=== PATIENT | female | born 1960 ===

== ENCOUNTER → 2016-10-21 | Outpatient (REF) | payer OTHER | LOC: M LAB REF 10:30 | PROVIDERS: ATTEND Registered Nurse | DX: L82.1 Other seborrheic keratosis (principal) ==

== ENCOUNTER → 2021-08-04 | Outpatient (REF) | payer OTHER | LOC: M LABCFH 14:50 | PROVIDERS: ATTEND Physician Assistant | DX: R87.610 Atypical squamous cells of undetermined significance on cytologic smear of cervix (ASC-US) (principal); Z12.4 Encounter for screening for malignant neoplasm of cervix; Z78.0 Asymptomatic menopausal state ==

== ENCOUNTER → 2022-03-16 | Outpatient (REF) | LOC: M PLALAB 12:39 | PROVIDERS: ATTEND Internal Medicine | DX: M54.50 Low back pain, unspecified (principal) ==

== ENCOUNTER → 2025-01-23 | Outpatient (REF) | payer OTHER | LOC: M CFLAB 13:24 | DX: Z12.4 Encounter for screening for malignant neoplasm of cervix (principal); N88.0 Leukoplakia of cervix uteri ==

== ENCOUNTER → 2025-02-06 | Outpatient (REF) | LOC: M LABCFH 09:28 | DX: N39.0 Urinary tract infection, site not specified (principal) ==